=== PATIENT | female | born 1990 | race Two or more races ===

== ENCOUNTER 2023-08-22 10:39 | Emergency (ER) | payer OTHER ==
[2023-08-22 11:45] VITALS: BP 119/79; PULSE 72; RESP 16; TEMP 97.7; BMI 31.7
== END 2023-08-22 12:54 | disposition home or self-care (01) ==
LOC: JERFT 10:39
DX: M25.572 Pain in left ankle and joints of left foot (principal)
CPT/HCPCS: 73610-TC-LT-FY; 99283-25